=== PATIENT | female | born 1950 | race Caucasian/White ===

== ENCOUNTER 2016-09-04 08:46 | Emergency (ER) | payer MEDICARE, OTHER ==
[~2016-09-04] VITALS: Ht 152.4 cm; Wt 69.5 kg
[~2016-09-04 08:46] MED LIST: ASPI81TA3 PO; CARBAMAZEPINE PO; GLIPIZIDE PO; QUINAPRIL PO
[2016-09-04 08:53] VITALS: Ht 152.4 cm; Wt 69.5 kg
[2016-09-04] MEDS ORDERED: ACETAMINOPHEN 325 MG TAB PO ONE (10:30)
--- NOTE | 2016-09-04 10:38 | ERD ---
ER Documentation Chief Complaint Date/Time DATE: 09/04/16 TIME: 10:31 Chief Complaint L ring finger pain and swelling x 1 day HPI 66-year-old female with a history of epilepsy, diabetes, hypertension presents to the emergency department following an injury which occurred last night resulting in a left fourth finger DIP joint injury. Patient states she was attempting to lift her dog up onto a bed when the dog jumped out of her hands and caused her to jam her finger into the floor. Patient states she experienced immediate 5 out of 10 pain which has remained constant since that time and is worse upon palpation to the area. Patient has not attempted to treat her pain symptoms at home patient states she is unable to extend the DIP joint due to pain. Patient denies any fall, head trauma, or wrist injury. ROS All systems reviewed and are negative except as per history of present illness. Medications Home Meds Active Scripts Acetaminophen* (Tylenol*) 325 Mg Tablet, 2 TAB PO Q6 Y for PAIN AND OR ELEVATED TEMP, #20 TAB Prov:ALICIA HARMON PA-C 09/04/16 Ibuprofen* (Motrin*) 600 Mg Tab, 600 MG PO Q8, #30 TAB Prov:ALICIA HARMON PA-C 09/04/16 Reported Medications [Quinapril] No Conflict Check, PO DAILY 01/21/16 [Glipizide] No Conflict Check, PO DAILY 01/21/16 [Carbamazepine] No Conflict Check, PO DAILY 01/21/16 Aspirin* (Aspirin* Chew) 81 Mg Tab.chew, 81 MG PO DAILY, TAB.CHEW 01/21/16 Allergies Allergies: Coded Allergies: Penicillins (Verified Allergy, Unknown, 09/04/16) PMhx/Soc History of Surgery: No Anesthesia Reaction: No Hx Neurological Disorder: Yes (EPILEPSY/SZ-LAST 2000) Hx Respiratory Disorders: No Hx Cardiac Disorders: Yes (HTN) Hx Psychiatric Problems: No Hx Miscellaneous Medical Probl: No Hx Alcohol Use: No Hx Substance Use: No Hx Tobacco Use: No Smoking Status: Never smoker Physical Exam Vitals Vital Signs Date Time Temp Pulse Resp B/P Pulse Ox O2 Delivery O2 Flow Rate FiO2 09/04/16 08:53 97.9 76 20 118/78 99 Physical Exam Const: Well-developed, well-nourished, in no acute distress Head: Atraumatic Eyes: Normal Conjunctiva ENT: Normal External Ears, Nose and Mouth. Neck: Full range of motion..~ No meningismus. Resp: Clear to auscultation bilaterally Cardio: Regular rate and rhythm, no murmurs Abd: Soft, non tender, non distended. Normal bowel sounds Skin: No petechiae or rashes Back: No midline or flank tenderness Ext: Erythema and swelling localized to the left fourth digit DIP joint. Distal joint observed to be in flexion. Patient unable to perform active range of motion of DIP joint. Limited passive range of motion due to pain of the DIP joint. No laceration or abrasion. Full range of motion at left wrist and elbow joint. Radial, median, ulnar nerve motor and sensory function intact. Radial pulse 2+. 2 point discrimination along median and ulnar distribution. No cyanosis, or edema Neur: Awake and alert Psych: Normal Mood and Affect Results 24 hrs Current Medications Medications (Trade) Dose Ordered Sig/Chalo Route PRN Reason Start Time Stop Time Status Last Admin Dose Admin Acetaminophen (Tylenol Tab) 650 mg ONCE ONCE PO 09/04/16 10:30 09/04/16 10:31 DC 09/04/16 10:23 Procedures/MDM X-ray Finger 2V Interpreted by me: Bones: No fracture Joints: No dislocation Foreign body: None Patient given Tylenol for pain and reports improvement of discomfort. Patient' s clinical picture consistent with acute mallet finger. Patient placed in finger splint in slight hyperextension. Patient instructed to remain in splint for 6 weeks duration. I discussed with the patient the recommendation to follow-up with relationship specialist for proper management. Continue Tylenol for pain. I attempted to contact to radiology for report multiple times but was unsuccessful. Patient case discussed with Dr. Condon, who interpreted x-ray and agrees with diagnosis/plan. Based on patient's history of present illness and physical examination the decision was made to discharge. The patient was re-evaluated after ED treatment and stabilizing measures, and symptoms have improved. There is no evidence of life threatening injuries or illnesses at this time. On re-examination, patient resting in no distress, stable vital signs, reports feeling better and safe for discharge with outpatient follow up with PMD in 1-2 days. Patient given return precautions. ALICIA HARMON PA-C Sep 04, 2016 10:38
[2016-09-04] MEDS ORDERED: IBUP-1542 PO (12:09)
[2016-09-04] MEDS ORDERED: ACET325T33 PO (12:09)
--- NOTE | 2016-09-04 14:09 | RADRPT ---
PROCEDURE: XR Left Hand. CLINICAL INDICATION: Left hand pain. Left fourth finger deformity. TECHNIQUE: Three views. Frontal lateral and oblique images of the left hand were obtained. COMPARISON: No prior studies are available for comparison. FINDINGS: There is no fracture or dislocation. The soft tissues are normal. The articular surfaces are intact. There is a fixed flexion deformity of the fourth distal interpha langeal joint. There is no lytic or blastic lesion. There is no radiopaque foreign body. IMPRESSION: 1. Fixed flexion deformity of the fourth distal interphalangeal joint. 2. Otherwise normal images of the left hand. RPTAT: QQ .Aston Whaley MD, MD Date Time Electronically viewed and signed by .Aston Whaley MD, on 09/04/2016 14:08 .R/
== END 2016-09-04 13:38 | disposition home or self-care (01) ==
LOC: FTE 08:46
DX: S69.92XA Unspecified injury of left wrist, hand and finger(s), initial encounter (principal); I10 Essential (primary) hypertension; E11.9 Type 2 diabetes mellitus without complications; M20.012 Mallet finger of left finger(s); W54.8XXA Other contact with dog, initial encounter; Y92.9 Unspecified place or not applicable; Z79.82 Long term (current) use of aspirin; Z79.84 Long term (current) use of oral hypoglycemic drugs

== ENCOUNTER 2017-08-16 16:19 | Emergency (ER) | END 2017-08-16 17:25 | disposition home or self-care (01) ==